=== PATIENT | male | born 1960 | race Caucasian/White ===

== ENCOUNTER 2017-08-21 23:55 | Emergency (ER) | payer OTHER ==
[~2017-08-21] VITALS: Ht 167.6 cm; Wt 99.8 kg
[2017-08-22] MEDS ORDERED: ERGO400 (00:35)
[2017-08-22] MEDS ORDERED: Natural Vita200 UNIT (00:35)
[2017-08-22] MEDS ORDERED: ATOR10 (00:35)
[2017-08-22] MEDS ORDERED: FISH OIL 1,0001 EAC1 (00:35)
[2017-08-22] MEDS ORDERED: Vitamin C100 M1 (00:35)
== END 2017-08-22 00:35 | disposition home or self-care (01) ==
LOC: ER 23:55 → EDBD 23:55 → ER 08-22 00:35
DX: T83.091A Other mechanical complication of indwelling urethral catheter, initial encounter (principal)
CPT/HCPCS: 51700; 51798; 99282

== ENCOUNTER 2019-03-06 11:48 | Day surgery (SDC) | payer OTHER ==
[~2019-03-06 11:48] MED LIST: ATOR10; ERGO400; FISH OIL 1,0001 EAC1; Natural Vita200 UNIT; Vitamin C100 M1
== END 2019-03-06 23:19 | disposition home or self-care (01) ==
LOC: WOUND 11:48
DX: L89.890 Pressure ulcer of other site, unstageable (principal)
CPT/HCPCS: G0463

== ENCOUNTER 2019-03-24 00:26 | Day surgery (SDC) | payer OTHER | END 2019-03-24 23:34 | disposition home or self-care (01) | LOC: WOUND 00:26 | DX: L89.150 Pressure ulcer of sacral region, unstageable (principal) | CPT/HCPCS: G0463 ==

== ENCOUNTER 2025-03-16 09:39 | Day surgery (SDC) | payer OTHER ==
[2025-03-16] VITALS (20 sets, daily range): BP systolic 97–168; BP diastolic 58–92
[~2025-03-16 09:39] MED LIST changes: +Aspir 8181 MG PO; +LOSA25 PO; +MELATONIN5 M1 PO; +METO25ER PO
--- NOTE | 2025-03-16 10:35 | NUR ---
INTO [facility] VIA PERSONAL WHEELCHAIR. PT IS PARAPLEGIC. HIS CARE PROVIDER IS HIS WIF YOVANI. YOVANI AT BEDSIDE ASSISTING WITH REVIEW OF HISTORY AND ALLERGIES. VS WDL. LUNGS CLEAR. NO NOTED SOB. SATS>90% ON RA. NPO STATUS CONFIRMED. BOWEL PREP CONFIRMED. PT YOVANI IS RIDE HOME TODAY.
--- NOTE | 2025-03-16 11:45 | NUR ---
03/16/25 1145 Savanna Galloway CONFIRMED AND REVIEWED H&P, MEDCICATIONS, ALLERGIES, MEDICAL HISTORY, RESPIRATORY HISTORY, VITAL SIGNS, 3-LEAD EKG, CONSENTS, AND PHYSICIAN ORDERS. PATIENT CONFIRMS NPO STATUS AND AGREES WITH SCHEDULED PROCEDURE. MONITOR INTACT WITH CONTINUOUS PULSE OXIMETRY, CAPNOGRAPHY, 3-LEAD EKG, INTERMITTENT BP. SUPPLEMENTAL O2 TO BE TITRATED THROUGHOUT PROCEDURE TO MAINTAIN O2 SATURATION ABOVE 90%. PATIENT DETERMINED TO BE ASA APPROPRIATE FOR PROPOFOL SEDATION PRIOR TO START OF PROCEDURE BY DR. CALZADA.
== END 2025-03-16 23:00 | disposition home or self-care (01) ==
LOC: ORSCMMR 09:39 → ORD 10:30 → ORSCMMR 10:30
PROVIDERS: Internal Medicine Gastroenterology
PROC: 0DBK8ZX Excision of Ascending Colon, Via Natural or Artificial Opening Endoscopic, Diagnostic (ICD-10-PCS; principal; 2025-03-16 10:30)
PROC: 0DBM8ZX Excision of Descending Colon, Via Natural or Artificial Opening Endoscopic, Diagnostic (ICD-10-PCS; principal; 2025-03-16 10:30)
PROC: 0DBL8ZX Excision of Transverse Colon, Via Natural or Artificial Opening Endoscopic, Diagnostic (ICD-10-PCS; principal; 2025-03-16 10:30)
DX: K62.5 Hemorrhage of anus and rectum (principal); D12.2 Benign neoplasm of ascending colon; K63.5 Polyp of colon; K63.89 Other specified diseases of intestine; Z80.0 Family history of malignant neoplasm of digestive organs; G82.20 Paraplegia, unspecified; I10 Essential (primary) hypertension; E78.00 Pure hypercholesterolemia, unspecified; Z79.899 Other long term (current) drug therapy; Z79.82 Long term (current) use of aspirin; Z87.891 Personal history of nicotine dependence
CPT/HCPCS: 88305; J2704; J7120

== ENCOUNTER 2025-04-26 02:30 | Day surgery (SDC) | payer OTHER | END 2025-04-26 23:00 | disposition home or self-care (01) | LOC: WOUND 02:30 | DX: Z87.828 Personal history of other (healed) physical injury and trauma (principal); G82.20 Paraplegia, unspecified; Z99.3 Dependence on wheelchair | CPT/HCPCS: G0463 ==